=== PATIENT | male | born 1960 | race Caucasian/White ===

== ENCOUNTER 2018-04-18 07:39 | Emergency (ER) | payer BC ==
[~2018-04-18 07:39] MED LIST: Sodium Chloride 0.9% 1,000 ML BAG ONE
[2018-04-18] MEDS ORDERED: Fentanyl 100 MCG/2 ML VIAL ONE (08:06)
[2018-04-18] MEDS ORDERED: Ondansetron HCl/PF 4 MG/2 ML Vial ONE (08:17)
[2018-04-18 08:29] LABS: Bilirubin Negative (Negative); Blood, Urine Negative (Negative); Clarity Clear (Clear); Glucose, Urine (Dipstick) Negative (Negative); Leukocyte Negative (Negative); Nitrite Negative (Negative); Protein, Urine (Dipstick) Negative (Neg-Trace); Urobilinogen 0.2 mg/dL (0.2-1.0); pH, Urine 5.5 (5.0-9.0)
[2018-04-18 08:32] LABS: #Basophils 0.1 thou/uL (0.0-0.2); #Eosinphils 0.2 thou/uL (0.0-0.7); #Lymphocytes 2.8 thou/uL (1.20-3.40); #Monocytes 0.5 thou/uL (0.11-0.59); #Neutrophils 3.8 thou/uL (1.40-6.50); %Basophils 1.3 % (0.0-1.0); %Eosinophils 2.1 % (0.0-10.0); %Lymphocytes 38.1 % (21.0-51.0); %Monocytes 7.2 % (0.0-10.0); %Neutrophils 51.3 % (42.0-75.0); Hemoglobin 14.8 g/dL (14.0-18.0); Mean Corpuscular HGB CONC 32.9 g/dL (32.0-36.0); Mean Corpuscular Hemoglobin 28.9 pg (27.0-31.0); Mean Corpuscular Volume 87.8 fL (78.0-98.0); Mean Platelet Volume 6.1 fL (7.4-10.4); Platelet Count 278 thou/uL (130-400); RBC Distribution Width 11.5 % (11.5-14.5); Red Blood Cell (RBC) Count 5.13 mill/uL (4.70-6.10); White Blood Cell (WBC) Count 7.5 thou/uL (4.8-10.8)
[2018-04-18] MEDS ORDERED: Ketorolac Tromethamine 30 MG/ML VIAL ONE (08:43)
[2018-04-18 08:48] LABS: ALT (SGPT) 18 U/L (8-55); AST (SGOT) 15 U/L (5-34); Albumin 4.4 g/dL (3.5-5.0); Alkaline Phosphatase 72 U/L (40-150); Anion Gap 19 mmol/L (10-20); BUN (Urea Nitrogen) 11 mg/dL (8.4-25.7); Bilirubin, Total 0.7 mg/dL (0.2-1.2); Calc. Creatinine Clearance 0 mL/min (70-130); Calcium 9.7 mg/dL (7.8-10.44); Carbon Dioxide 21 mmol/L (22-29); Chloride 105 mmol/L (98-107); Estimated GFR-MDRD 69; Globulin 3.2 g/dL (2.4-3.5); Glucose 141 mg/dL (70-105); Lipase 42 U/L (8-78); Potassium 3.9 mmol/L (3.5-5.1); Protein, Total 7.6 g/dL (6.0-8.3); Sodium 141 mmol/L (136-145)
--- NOTE | 2018-04-18 08:50 | CT ---
CT OF ABDOMEN AND PELVIS PERFORMED WITHOUT CONTRAST ENHANCEMENT: Date: 04/18/18 HISTORY: Left flank pain. FINDINGS: There is some linear atelectasis or scar within the left lung base. Some calcified right hilar lymph nodes noted. The liver, spleen, and pancreas regions appear unremarkable given the limitations of a noncontrast st udy. Gallbladder has been removed. Right adrenal gland is normal in appearance. There is a left adrenal mass with CT Hounsfield unit num bers of 8. This would be most suggestive of an adenoma. It measures 16.0 mm. Bilateral renal calculi are noted with multiple numerous small calculi generally in the 4-5 mm range involving both kidneys. There is left-sided hydronephrosis and mild hydroureter, which is related to a 2.0 mm left ureteroves ical junction calculus. There is no significant periaortic or mesenteric adenopathy. CT of pelvis was performed without contrast enhancement. Minimal sigmoid diverticulosis is noted. The appendix region appears unremarkable. No significant adenopathy or mass. There are arthritic changes of the spine. IMPRESSION: 1. Multiple bilateral renal calculi. 2. 2-3 mm left ureterovesical junction calculus associated with mild left-sided hydronephrosis and h ydroureter. 3. Small, fat-containing periumbilical hernia. 4. Minimal sigmoid diverticulosis. POS: [facility]
== END 2018-04-18 09:20 | disposition home or self-care (01) ==
LOC: MADERS 07:39
DX: N13.2 Hydronephrosis with renal and ureteral calculous obstruction (principal); K57.90 Diverticulosis of intestine, part unspecified, without perforation or abscess without bleeding; K42.9 Umbilical hernia without obstruction or gangrene; E78.00 Pure hypercholesterolemia, unspecified; Z79.899 Other long term (current) drug therapy
CPT/HCPCS: 74176; 80053; 81003; 83690; 85025; 87086; 96361; 96374; 96375; J1885; J2405; J3010; J7050